=== PATIENT | female | born 1990 | race Two or more races ===

== ENCOUNTER 2022-05-04 20:13 | Emergency (ER) | payer OTHER ==
[2022-05-04 20:27] VITALS: BP 110/79; PULSE 87; RESP 16; TEMP 98.4; BMI 25.7
== END 2022-05-04 22:19 | disposition home or self-care (01) ==
LOC: FER 20:13
DX: S92.352A Displaced fracture of fifth metatarsal bone, left foot, initial encounter for closed fracture (principal); X50.0XXA Overexertion from strenuous movement or load, initial encounter
CPT/HCPCS: 73610-TC-LT-FY; 73630-TC-LT; 99283-25